=== PATIENT | female | born 2000 | race Caucasian/White ===

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

== ENCOUNTER 2022-11-03 20:30 | Emergency (ER) | payer OTHER ==
[2022-11-03 22:14] LABS: SARS-CoV-2 NAA Rapid Test Not Detected (NotDetected)
== END 2022-11-03 21:26 | disposition home or self-care (01) ==
LOC: ERS 20:30
DX: H65.91 Unspecified nonsuppurative otitis media, right ear (principal); Z20.822 Contact with and (suspected) exposure to COVID-19
CPT/HCPCS: 99283

== ENCOUNTER 2023-08-03 10:32 | Outpatient (CLI) | payer OTHER | END 2023-08-03 10:33 | disposition home or self-care (01) | LOC: BICULT 10:32 | PROVIDERS: ATTEND Nurse Practitioner Women's Health | DX: Z34.82 Encounter for supervision of other normal pregnancy, second trimester (principal); Z3A.22 22 weeks gestation of pregnancy | CPT/HCPCS: 76805 ==